=== PATIENT | female | born 1975 | race Two or more races ===

== ENCOUNTER 2019-08-21 22:54 | Emergency (ER) | payer OTHER ==
[~2019-08-21] VITALS: Ht 152.4 cm; Wt 75.3 kg
[~2019-08-21 22:54] MED LIST: KETO10TA2 PO
[2019-08-22] MEDS ORDERED: KEFLEX500 MG PO (02:56)
[2019-08-22] MEDS ORDERED: MUPIROCIN22 GM TOP (02:56)
== END 2019-08-22 03:16 | disposition home or self-care (01) ==
LOC: ER 22:54
DX: L02.511 Cutaneous abscess of right hand (principal); L03.011 Cellulitis of right finger

== ENCOUNTER → 2019-09-19 | Emergency (ER) | payer OTHER ==
[~2019-09-19] VITALS: Ht 154.9 cm; Wt 74.8 kg
[~2019-09-19] MED LIST changes: +DOLOGESIC 500-1 EACH PO; +GLIMEPIRIDE1 MG; +KEFLEX500 MG PO; +METFORMIN HCL1000 M2; +MUPIROCIN22 GM TOP
== END | disposition home or self-care (01) ==
LOC: ER 00:26
DX: B34.9 Viral infection, unspecified (principal); R50.9 Fever, unspecified

== ENCOUNTER 2020-07-10 10:10 | Outpatient (CLI) | payer OTHER | END 2020-07-10 12:00 | disposition home or self-care (01) | LOC: OFIC 805 10:10 | PROVIDERS: ATTEND Otolaryngology | DX: H90.3 Sensorineural hearing loss, bilateral (principal); H61.23 Impacted cerumen, bilateral ==

== ENCOUNTER 2020-07-24 08:53 | Outpatient (CLI) | payer OTHER | END 2020-07-24 17:02 | disposition home or self-care (01) | LOC: OFIC 805 08:53 | PROVIDERS: ATTEND Otolaryngology | DX: H90.42 Sensorineural hearing loss, unilateral, left ear, with unrestricted hearing on the contralateral side (principal); H61.22 Impacted cerumen, left ear ==